=== PATIENT | male | born 1985 | race Caucasian/White ===

== ENCOUNTER 2021-07-11 16:31 | Outpatient (CLI) | payer OTHER, SELFPAY ==
[2021-07-11 17:56] LABS: SARS-CoV-2 RNA PCR Negative (Negative)
== END 2021-07-11 16:32 | disposition home or self-care (01) ==
LOC: CHSLAB 16:36
PROVIDERS: PCP Family Medicine; Visit Provider Family Medicine
DX: R68.89 Other general symptoms and signs (principal); Z20.822 Contact with and (suspected) exposure to COVID-19
CPT/HCPCS: C9803; U0003; U0005

== ENCOUNTER 2022-06-07 07:00 | Outpatient (CLI) | payer OTHER, SELFPAY ==
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
== END 2022-06-07 07:01 | disposition home or self-care (01) ==
LOC: ANHIMG 07:06
PROVIDERS: PCP Physician Assistant Medical; Visit Provider Physician Assistant Medical
DX: M54.9 Dorsalgia, unspecified (principal); M54.2 Cervicalgia; V89.2XXA Person injured in unspecified motor-vehicle accident, traffic, initial encounter; M43.02 Spondylolysis, cervical region
CPT/HCPCS: 72040; 72070; 72100